=== PATIENT | female | born 1950 | race Caucasian/White ===

== ENCOUNTER 2025-01-23 11:41 | Emergency (ER) | payer MEDICARE, MEDICAID, SELFPAY ==
[2025-01-23] VITALS (10 sets, daily range): BP systolic 162–183; BP diastolic 66–114; PULSE 75–93; RESP 14–18; TEMP 36.4–37; O2SAT 94–100; BMI 29.7
--- NOTE | 2025-01-23 12:01 | EKG_ITS ---
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
--- NOTE | 2025-01-23 12:04 | XR_ITS ---
EXAMINATION: AP chest single view TECHNIQUE: AP portable semiupright chest single view Date and time: January 23, 2025, 12:42 p.m., comparison September 18, 2023 INDICATIONS: Nausea vomiting today. FINDINGS: Mild enlargement left ventricle Mild vascular congestion. No lobar pneumonia or pulmonary edema Moderate thoracic dextroscoliosis with prominent osteopenia IMPRESSION: Mild enlargement left ventricle Mild vascular congestion
--- NOTE | 2025-01-23 12:04 | XR_ITS ---
Examination: CT brain head without contrast. 2-D sagittal coronal reconstructions Date and time of exam: January 23, 2025, 1225 hours, comparison September 18, 2023 INDICATIONS: Onset hypertension and headache today CTDI: vol (mGy): 45.8 DLP: (mGycm): 933 Technique: Multiple CT axial sections of the brain have been obtained, 5 mm slice thickness. Contrast has not been administered. 2-D sagittal, coronal reconstructions have been obtained Low dose protocols were performed. One or more of the following dose reduction techniques were used; automated exposure control, adjustment of the mA and/or KV according to patient size, use of iterative reconstruction technique. Findings: No significant ventricular enlargement. Intra-axial or extra-axial hemorrhage density is not seen. No mass effect or midline shift Basal cisterns are not remarkable. Fourth ventricle is midline. Cranial vault intact. Impression: Negative for acute hemorrhage, mass effect or midline shift Acute sphenoid sinusitis
--- NOTE | 2025-01-23 12:13 | PD.EDNV ---
Nausea/Vomit./Diarrhea-RME/HPI General Chief complaint: Dizziness Stated complaint: NAUSEA/VOMITTING Time Seen by Provider: 01/23/25 11:50 Arrival date/time: 01/23/25 11:41 RME / HPI RME / HPI Narrative: 74 years old female patient with significant history of colostomy, depression, left brought in by EMS for evaluation regarding not feeling well. Patient told me that for the last few days she has been having headache, dry heaving, and feels like she has sinusitis because she smells like rotten egg. She also complaining of nasal congestion. She is blowing her nose frequently. Patient denies any fever denies any cough denies any upper or lower extremity focal neurologic deficit. Denies any chest pain denies any abdominal pain. Related Data Home Medications ?Medication ?Instructions ?Recorded ?Confirmed duloxetine 30 mg capsule,delayed 30 mg PO BID 09/18/23 09/18/23 release Previous Rx's ?Medication ?Instructions ?Recorded amitriptyline 50 mg tablet 50 mg PO HS #30 tabs 09/20/23 amoxicillin 875 mg-potassium 1 tab PO BID #14 tabs 01/23/25 clavulanate 125 mg tablet famotidine 40 mg tablet (Pepcid) 40 mg PO BID #20 tabs 01/23/25 ondansetron HCl 4 mg tablet 4 mg PO Q8H PRN nausea and 01/23/25 vomiting 5 days #20 tabs Allergies Allergy/AdvReac Type Severity Reaction Status Date / Time midazolam (From Versed) Allergy Severe jerk Verified 01/23/25 12:04 prochlorperazine Allergy Severe jerk Verified 01/23/25 12:04 metoclopramide (From Reglan) Allergy Unknown JERKING Verified 01/23/25 12:04 hydromorphone AdvReac Severe nausa Verified 01/23/25 12:04 ketorolac AdvReac Intermediate ABD PAIN Verified 01/23/25 12:04 Review of Systems Review of Systems Narrative Review of Systems: Review of system reviewed and within normal limits except mentioned in HPI ED Exam Narrative Physical exam: VITAL SIGNS: Reviewed. GENERAL APPEARANCE: Alert and interactive, follows commands, no acute distress, HEAD AND FACE: Non-traumatic. ENT: PERRL, pink conjunctivitis, eyelid no trauma, Mucous membrane moist. NECK: Supple, nontender, no nuchal rigidity. CHEST: No tenderness, no crepitus, no paradoxical movement, no retractions. LUNGS: Clear, well ventilated, symmetric, no rales, no wheezing, no ronchi, no stridor, good breath sounds bilaterally. HEART: Regular rate, regular rhythm, no murmur, no gallops. ABDOMEN: Soft, positive bowel sounds, nondistended, no guarding, nontender, no rebound, no masses, colostomy intact, working well RECTAL: Deferred. GENITAL: Deferred. NEUROLOGICAL: Gross motor function intact sensory function intact, Appropriate for age. MUSCULOSKELETAL: low back nontender, full range of motion. EXTREMITIES: Nontender, full range of motion. SKIN: Color pink, dry, no rash, no lacerations, no abrasions, no contusions. LYMPHATICS: Deferred. Course Quality Measures none Orders Category Date Time Status Bedside COVID-19 Antigen Test NOW Care 01/23/25 13:[address] Screening NOW Care 01/23/25 16:22 Completed EKG (ED ONLY) *Do not use* NOW Care 01/23/25 12:01 Completed Insert IV NOW Care 01/23/25 12:[address] abdomen pelvis w con Stat Exams 01/23/25 16:[address] head/brain wo con Stat Exams 01/23/25 12:04 Completed EKG (ED Only) Stat Exams 01/23/25 12:01 Draft XR chest 1V Stat Exams 01/23/25 12:04 Completed CBC Stat Lab 01/23/25 11:55 Completed Comprehensive Metabolic Panel Stat Lab 01/23/25 11:55 Completed Influenza A & B Rapid Panel Stat Lab 01/23/25 13:20 Completed Lactate (Lactic Acid) Stat Lab 01/23/25 12:52 Completed Lipase Stat Lab 01/23/25 11:55 Completed Partial Thromboplastin Time Stat Lab 01/23/25 11:55 Completed T4 (Thyroxine) Stat Lab 01/23/25 11:55 Completed TSH [Thyroid Stimulating Hormone] Stat Lab 01/23/25 11:55 Completed Troponin I Stat Lab 01/23/25 11:55 Completed Urinalysis, C/S if Indicated Stat Lab 01/23/25 16:06 Completed Acetaminophen Tab [Tylenol Tab] Med 01/23/25 18:07 Discontinued 650 mg PO X1 ONE Amoxicillin/Pot Clav 875 [Augmentin 875] Med 01/23/25 14:02 Discontinued 1 tab PO X1 ONE DiphenhydrAMINE [Benadryl] Med 01/23/25 14:03 Discontinued 25 mg PO X1 ONE Famotidine [Pepcid] Med 01/23/25 12:11 Discontinued 40 mg PO X1 ONE HYDROcodone/APAP 10/325 [[place] 10/325] Med 01/23/25 14:19 Discontinued 1 tab PO X1 ONE Morphine* Inj Med 01/23/25 13:13 Discontinued 4 mg IVP X1 ONE Ondansetron Inj [Zofran Inj] Med 01/23/25 16:34 Discontinued 4 mg IVP X1 ONE Ondansetron Odt [Zofran Odt] Med 01/23/25 12:07 Discontinued 4 mg PO X1 ONE Promethazine HCl [Phenergan] Med 01/23/25 20:39 Discontinued 25 mg PO X1 ONE Ringers Lactated 1000 ml [Lactated Ringers] 1,000 ml Med 01/23/25 12:08 Discontinued IV 999 mls/hr Sodium Chloride 0.9% 1000 ml [Ns] 1,000 ml Med 01/23/25 15:31 Discontinued IV 999 mls/hr hydrALAZINE HCL [Apresoline] Med 01/23/25 12:09 Discontinued 25 mg PO X1 ONE Vital Signs Vital signs: Vital Signs Temperature 98.2 F 01/23/25 12:04 Pulse Rate 75 01/23/25 12:04 Respiratory Rate 16 01/23/25 12:04 Blood Pressure 162/82 H 01/23/25 12:04 Pulse Oximetry (%) 95 01/23/25 12:04 Oxygen Delivery Method Room Air 01/23/25 12:04 Nausea/Vomiting/Diarrhea MDM Narrative MDM Narrative:: 74 years old female patient with significant history of colostomy, depression, brought in by EMS for evaluation regarding not feeling well. Patient told me that for the last few days she has been having headache, dry heaving, and feels like she has sinusitis because she can smell like rotten egg. She also complaining of nasal congestion. She is blowing her nose frequently. Patient denies any fever denies any cough denies any upper or lower extremity focal neurologic deficit. Denies any chest pain denies any abdominal pain. EKG showed normal sinus rhythm, ventricular rate of 86 bpm, no ST segment elevation depression noted. CT scan of the head came back with sinusitis otherwise unremarkable. CT scan of the abdomen and pelvis came back unremarkable. Patient's laboratory workup all came back normal. Patient's blood pressure was noted to be slightly elevated, patient was given hydralazine p.o. Patient stable for discharge home. Tolerating p.o. fluids. Patient data External records reviewed:: None Clinical information provided by:: patient Social determinants that could affect healthcare access:: none Patient has the following chronic illnesses:: Depression How is presenting disease/condition affected by chronic disease/condition?: uneffected by Evaluation data The following diagnostics were reviewed and interpreted by me:: lab results, radiology exam(s) and EKG tracing(s) Lab and/or radiology exams considered but not ordered:: None Interpretation Summary: See MDM Medications / Prescriptions Medications / Prescriptions considered but not ordered:: None Medication administrations:: Medication Administration History Discontinued Medications Acetaminophen (Acetaminophen 325 Mg Tablet) 650 mg PO X1 ONE Stop: 01/23/25 18:08 Last Admin: 01/23/25 18:10 Dose: 650 mg Documented By: BD Hydrocodone Bitart/Acetaminophen (Hydrocodone/Apap 10/325 Tab) 1 tab PO X1 ONE Stop: 01/23/25 14:20 Last Admin: 01/23/25 14:39 Dose: 1 tab Documented By: BD Amoxicillin/Clavulanate Potassium (Amoxicillin/Pot Clav 875 Tablet) 1 tab PO X1 ONE Stop: 01/23/25 14:03 Last Admin: 01/23/25 14:39 Dose: 1 tab Documented By: BD Diphenhydramine HCl (Diphenhydramine 25 Mg Capsule) 25 mg PO X1 ONE Stop: 01/23/25 14:04 Last Admin: 01/23/25 14:39 Dose: 25 mg Documented By: BD Famotidine (Famotidine 20 Mg Tablet) 40 mg PO X1 ONE Stop: 01/23/25 12:12 Last Admin: 01/23/25 12:39 Dose: 40 mg Documented By: DB Hydralazine HCl (Hydralazine Hcl 25 Mg Tablet) 25 mg PO X1 ONE Stop: 01/23/25 12:10 Last Admin: 01/23/25 12:38 Dose: 25 mg Documented By: EVERARDO Lactated Ringer's (Lactated Ringers) 1,000 mls @ 999 mls/hr IV .Q1H1M ONE Stop: 01/23/25 13:08 Last Infusion: 01/23/25 13:55 Dose: Infused Documented By: Admin: 01/23/25 12:40 Dose: 999 mls/hr Documented By: DB Sodium Chloride (Ns) 1,000 mls @ 999 mls/hr IV .Q1H1M ONE Stop: 01/23/25 16:31 Last Infusion: 01/23/25 16:43 Dose: Infused Documented By: Admin: 01/23/25 15:41 Dose: 999 mls/hr Documented By: BD Morphine Sulfate (Morphine Sulf Inj 4 Mg/Ml Vial) 4 mg IVP X1 ONE Stop: 01/23/25 13:14 Last Admin: 01/23/25 13:23 Dose: 4 mg Documented By: BD Ondansetron HCl (Ondansetron Odt 4 Mg Tabrap) 4 mg PO X1 ONE; Protocol Stop: 01/23/25 12:08 Last Admin: 01/23/25 12:39 Dose: 4 mg Documented By: DB Ondansetron HCl (Ondansetron Inj 2 Mg/Ml Inj 2 Ml) 4 mg IVP X1 ONE; Protocol Stop: 01/23/25 16:35 Last Admin: 01/23/25 16:39 Dose: 4 mg Documented By: BD Promethazine HCl (Promethazine Hcl 25 Mg Tablet) 25 mg PO X1 ONE Stop: 01/23/25 20:40 Last Admin: 01/23/25 20:46 Dose: 25 mg Documented By: DT See [facility] Consultations Consultation(s) initiated? (list below): No Diagnosis Nausea Differential Diagnosis: dehydration and other (Nausea vomiting, sinusitis) Most likely diagnosis given after review of the tests above:: Nausea and vomiting, sinusitis Admission Indicated Admission indicated?: not indicated Admission Request Was there a request for admission?: No Disposition Plan Disposition Plan: Discharge Discharge Attestation Discharge Attestation: The patient waas given an opportunity to ask questions and understood the discharge instructions. Discharge instructions specifically effects, indications for sooner follow up or return to the emergency department, and the expected course of current diagnosis. Patient condition: Stable Discharge Plan Plan Patient Disposition: HOME (Self Care) Discharge Disposition comment: Stable Prescriptions/Referrals Prescriptions/Med Rec: New ondansetron HCl 4 mg tablet 4 mg PO Q8H PRN (Reason: nausea and vomiting) 5 Days Qty: 20 0RF famotidine [Pepcid] 40 mg tablet 40 mg PO BID Qty: 20 0RF amoxicillin-pot clavulanate 875-125 mg tablet 1 tab PO BID Qty: 14 0RF No Action duloxetine 30 mg capsule,delayed release(DR/EC) 30 mg PO BID Patient Comments: TAKE 1 CAPSULE BY MOUTH TWICE A DAY amitriptyline 50 mg tablet 50 mg PO HS Qty: 30 0RF Referrals: No Primary/Family,Physician [Primary Care Provider] - In 1 week Problem List Clinical Impression: Sinusitis, Nausea & vomiting Patient/Caregiver Discharge Instructions Discharge Activity: activity as tolerated Education Materials: Causes of Sinusitis Additional Instructions: Thank you for the opportunity for serving you today. You are stable for discharged . You are advised to: Follow-up with your PCP in 1 to 2 days Return to ED for worsening of symptoms Increase oral fluids Take medication as prescribed Also PCP to look at your blood pressure issues. Today your blood pressure was noted to be slightly elevated. Print Language: Latvian Stand Alone Forms: Zoe Award Info., Patient Portal Info Letter PA/LICENSED PSYCHIATRIC TECHNICIAN Supervising Physician PA/LICENSED PSYCHIATRIC TECHNICIAN Supervising Physician: MD Karthikeyan
[2025-01-23 12:34] LABS: Basophils # (Auto) 0.1 Thou/mm3 (0.0-0.2); Basophils % (Auto) 1 % (0-2.5); Eosinophils # (Auto) 0.0 Thou/mm3 (0.0-0.5); Eosinophils % (Auto) 0 % (0-10); Hematocrit 41.7 % (36.0-46.0); Hemoglobin 14.2 g/dL (12.0-16.0); Immature Granulocytes Auto 0.05 Thou/mm3 (0.00-0.00); Lymphocytes # (Auto) 1.5 Thou/mm3 (1.0-4.8); Lymphocytes % (Auto) 14 % (10-50); Mean Corpuscular HGB Conc 34.1 g/dl (31.0-37.0); Mean Corpuscular Hemoglobin 30.4 pg (25.0-35.0); Mean Corpuscular Volume 89 fL (80-100); Monocytes # (Auto) 0.5 Thou/mm3 (0.0-0.8); Monocytes % (Auto) 5 % (0-12); Neutrophils # (Auto) 8.2 Thou/mm3 (1.8-7.7); Neutrophils % (Auto) 80 % (37-80); Nucleated Red Blood Cell # 0.00 Thou/mm3 (0.00-0.00); Nucleated Red Blood Cell % 0 /100 WBC (0); Platelet Count 247 Thou/mm3 (140-440); RDW Standard Deviation 44.6 fL (36.4-46.3); Red Blood Count 4.67 Miln/mm3 (4.00-5.20); White Blood Count 10.3 Thou/mm3 (3.6-11.0)
[2025-01-23] MEDS: FAMOTIDINE 20 MG TABLET 40 MG PO (12:39)
[2025-01-23] MEDS: ONDANSETRON ODT 4 MG TABRAP PO (12:39)
[2025-01-23] MEDS: RINGERS LACTATED 1000 ML 1,000 ML 999 ML IV (12:40)
[2025-01-23 12:50] LABS: Partial Thromboplastin Time 23.4 Seconds (22.0-36.0)
[2025-01-23 12:54] LABS: T4 (Thyroxine) 7.6 mcg/dL (4.5-10.9)
[2025-01-23 12:55] LABS: Alanine Aminotransferase 16 U/L (10-49); Albumin, Serum 4.7 gm/dL (3.4-4.8); Albumin/Globulin Ratio 2.2 (1.2-2.2); Alkaline Phosphatase 98 U/L (46-116); Anion Gap 12 (7-16); Aspartate Amino Transferase 29 U/L (0-34); BUN/Creatinine Ratio 21 Ratio (12-20); Bilirubin,Total 0.7 mg/dL (0.3-1.2); Blood Urea Nitrogen 17 mg/dL (9-23); Calcium 9.7 mg/dL (8.3-10.6); Calcium (Corrected) 9.7 mg/dL (8.5-10.1); Carbon Dioxide 22.4 mMol/L (20.0-31.0); Chloride 110 mMol/L (98-107); Creatinine (Component) 0.8 mg/dL (0.6-1.3); Estimated Creatinine Clearance 49.7 mL/min (>60); Globulin 2.1 gm/dL (2.3-3.5); Glucose 140 mg/dL (74-106); Lipase 32 U/L (12-53); Osmolality,Calculated 290 (275-295); Potassium 3.9 mMol/L (3.4-5.1); Sodium 144 mMol/L (136-145); Thyroid Stimulating Hormone 1.87 uIU/mL (0.55-4.78); Total Protein 6.8 gm/dL (5.7-8.2); Troponin I < 0.020 ng/mL (0.0-0.045); eGFR > 60 See Note
[2025-01-23 12:55] LABS: Lactate (Lactic Acid) 1.8 mMol/L (0.4-2.0)
[2025-01-23] MEDS: MORPHINE SULF INJ 4 MG/ML VIAL IVP (13:23)
[2025-01-23 14:26] LABS: Influenza A Ag Negative; Influenza B Ag Negative
--- NOTE | 2025-01-23 14:30 | PC.NURSE ---
PT WAS NOT ABLE TO TOLERATE IN AND OUT CATH ADVISED SHE WILL TRY TO GO ON OWN
[2025-01-23] MEDS: AMOXICILLIN/POT CLAV 875 TABLET 1 TAB PO (14:39)
[2025-01-23] MEDS: SODIUM CHLORIDE 0.9% 1000 ML 1,000 ML 999 ML IV (15:41)
[2025-01-23 16:19] LABS: Collection Type, Urine Clean Catch
--- NOTE | 2025-01-23 16:22 | XR_ITS ---
Examination: CT abdomen with intravenous contrast CT pelvis with intravenous contrast 2-D coronal reconstructions 2-D sagittal reconstructions Date and time of exam: January 23, 2025, 1823 hours INDICATIONS: Nausea and vomiting abdominal pain today COMPARISON: 05 Sep 2007. CTDI: vol (mGy) 8.57 DLP: (mGycm) 133 Technique: Multiple axial sections of the abdomen and pelvis have been obtained. 64 slice high-resolution scanner used. 3 mm axial sections have been obtained, post intravenous injection 60 cc [id number] 2-D sagittal, coronal reconstructions obtained. Low dose protocols were performed. One or more of the following dose reduction techniques were used; automated exposure control, adjustment of the mA and/or KV according to patient size, use of iterative reconstruction technique. Findings: Mild enlargement cardiac contour No focal liver or splenic lesions No gallstones No pancreatic or adrenal mass Moderate renal scar formation, no hydronephrosis Aorta normal size Right ileostomy No bowel obstruction Distended urinary bladder Atrophic uterus Severe osteopenia with chronic osteoporotic compression T11 IMPRESSION: Negative for gallstones Moderate renal parenchymal scar formation Negative for small bowel obstruction Distended urinary bladder
[2025-01-23 16:23] LABS: Bilirubin,Urine Negative (Negative); Blood,Urine 1+ (Negative); Clarity,Urine Clear (Clear/Hazy); Color,Urine Lt-Yellow (Lt Yel-Yel); Culture Indicated,Urine Not Indicated; Glucose, Urine Negative (Negative); Ketones,Urine Negative (Negative); Leukocyte Esterase,Urine Negative (Negative); Nitrite,Urine Negative (Negative); PH,Urine 6.0 (5.0-7.0); Protein,Urine Negative (Neg - Trace); RBC,Urine 7 /hpf (0-3); Specific Gravity,Urine 1.018 (1.001-1.035); Squamous Epithelial Cell,Urine < 1 /hpf (0-5); Urobilinogen,Urine Negative mg/dL (0.0-1.0); WBC,Urine 2 /hpf (0-5)
[2025-01-23] MEDS: ONDANSETRON INJ 2 MG/ML INJ 2 ML 4 MG IVP (16:39)
[2025-01-23] MEDS: ACETAMINOPHEN 325 MG TABLET 650 MG PO (18:10)
[2025-01-23] MEDS: PROMETHAZINE HCL 25 MG TABLET PO (20:46)
== END 2025-01-23 21:37 | disposition home or self-care (01) ==
PROVIDERS: Nurse Practitioner Family; Emergency Provider Family Medicine
DX: J32.9 Chronic sinusitis, unspecified (principal); F32.A Depression, unspecified; Z93.3 Colostomy status
CPT/HCPCS: 36415; 70450; 71045; 74177; 80053; 81001; 83605; 83690; 84436; 84443; 84484; 85025; 85730; 87502; 87811; 93005; 99284; A4649; J2270; J2405; J7030; J7120; Q0162; Q9967; A9270